=== PATIENT | female | born 1990 | race Caucasian/White ===

== ENCOUNTER 2016-06-04 00:30 | Outpatient (CLI) | payer MEDICAID ==
[~2016-06-04] VITALS: Ht 154.9 cm; Wt 79.4 kg
[2016-06-04 00:50] VITALS: Ht 154.9 cm; Wt 79.4 kg
[2016-06-04 00:54] VITALS: BP 130/66; PULSE 85; RESP 18
[2016-06-04] MEDS ORDERED: LACTATED RINGER'S 1,000 ML IV* SCH (01:00)
--- NOTE | 2016-06-04 02:11 | RADRPT ---
PROCEDURE: Obstetrical ultrasound, limited. CLINICAL INDICATION: labor. TECHNIQUE: Multiple sonographic images of the pelvis were obtained using transabdominal technique . Images were obtained with sadler scale and color Doppler. Transvaginal evaluation of the cervix was also performed. The images were reviewed on a PACS workstation. COMPARISON: No prior studies are available for comparison. FINDINGS: There is a single living intrauterine gestation with the fetus in a breech presentation. hear t tones of 143 beats per minute are identified. The placenta is posterior in location, grade 1. Th e cervix is closed measuring 3.1 cm. IMPRESSION: Single viable intrauterine gestation. Cervical length of 3.1 cm. .Jaun Vines MD, Date Time Electronically viewed and signed by .Jaun Vines MD, MD on 06/04/2016 02:11 .T/
[2016-06-04 02:13] LABS: ADD UMIC NO; URINE BILIRUBIN (Dip) NEGATIVE (NEGATIVE); URINE BLOOD (Dip) NEGATIVE (NEGATIVE); URINE COLOR LT. YELLOW (YELLOW); URINE GLUCOSE (Dip) NEGATIVE (NEGATIVE); URINE KETONES (Dip) NEGATIVE (NEGATIVE); URINE LEUKOCYTE ESTERASE (Dip) NEGATIVE (NEGATIVE); URINE NITRITE (Dip) NEGATIVE (NEGATIVE); URINE TOTAL PROTEIN (Dip) NEGATIVE (NEGATIVE); URINE UROBILINOGEN (Dip) 0.2 E.U./dL (0.1-1.0)
--- NOTE | 2016-06-04 03:09 | PN ---
Date/Time of Note Date/Time of Note DATE: 06/04/16 TIME: 03:03 OB Subjective Subjective Subjective 26 Year-old G1 with SIUP at 23 presents with a chief complaint of abdominal and back pain. She has been receiving her care with a Ob clinic. She states good movement. She denies nausea, vomiting, shortness of breath, chest pain, and abdominal pain between contractions, headache, visual changes, vaginal bleeding or LOF. OB Objective Objective Objective Physical Exam: General: Patient appears well, alert and oriented, NAD, appropriate mood and affect ABD: gravid, soft, non-tender. Back: No CVA tenderness (B/L) LE: No clubbing, cyanosis, edema, thigh or calf tenderness bilaterally FHT: 135 bpm , moderate variability with acceleration, no deceleration- category I Contractions: None Speculum exam: No vaginal bleeding or LOF, fibronectin collected OB Assessment/Plan Other plan: Assessment/Plan: 26 Year-old G1 with SIUP at 23 wks with abdominal and back pain. - FHR: No sign of metabolic acidosis- Category I - Continuous EFM, toco - Contractions: None. - OB us performed: CL: 3.1 cm - U/A, FFN: neg - Symptoms and sign of labor, preeclampsia, kick count discussed with patient, she voiced understanding. All of her questions answered. Patient was discharged home in stable condition with the appropriate discharge instructions provided. I would like patient to have close follow-up with her primary physician or outpatient clinic in 1-2 days or return to the ER for worsening symptoms or any other urgent concerns. CHASE HAMM Jun 04, 2016 03:09
--- NOTE | 2016-06-04 03:46 | TRIAGE ---
OB Triage Datetime Report Generated by CPN: 06/04/2016 03:45 Datetime: 06/04/2016 03:20 Stage of : OB Triage Datetime: 06/04/2016 03:00 Stage of : OB Triage Labor Evaluation Frequency: 3/HR Monitor Mode: External Duration (sec)2399: 60 Quality: Mild Pattern: Normal: <= 5 Contractions in 10 Minutes Resting Tone Wadsworth: Relaxed Pain Goal: 0 Datetime: 06/04/2016 02:56 Stage of : OB Triage Datetime: 06/04/2016 02:00 Stage of : OB Triage EGA: 22.3 Labor Evaluation Frequency: IRREGULAR Monitor Mode: External Duration (sec)2399: 50-80 Quality: Mild Pattern: Normal: <= 5 Contractions in 10 Minutes Resting Tone Wadsworth: Relaxed Datetime: 06/04/2016 01:20 Vaginal Exam Dilatation (cms): 0.0 Effacement (%): 0 Station: -3 Exam By: Kendy RIOJAS RN Vaginal Bleeding: None Cervix, Consistency: Firm Cervix, Position: Posterior Datetime: 06/04/2016 01:00 Labor Evaluation Frequency: 2/hr Monitor Mode: External Duration (sec)2399: 60-100 Quality: Mild Pattern: Normal: <= 5 Contractions in 10 Minutes Resting Tone Wadsworth: Relaxed Datetime: 06/04/2016 00:49 Stage of : OB Triage Assessment Type: Triage Time of Arrival: 06/04/2016 00:30 Arrived By: Ambulatory Arrived From: Home Chief Complaint: BACK PAIN Movement: Present Contractions: Irregular Time Contractions Began: 06/03/2016 21:00 Rupture of Membranes: Denies Vaginal Bleeding: None Vaginal Discharge: Denies Recent Sexual Intercouse: Denies Abdominal Trauma: Not Applicable Patient Complaints: None (Annotations: Data stored by CPN on behalf of user) Time Provider Notified: 06/04/2016 01:09 Provider Notified: DR HAMM Initial Plan: CALL TORREY COLIN Maternal Assessment Level of Consciousness: Fully Conscious DTR's/Clonus: DTRs 2+; No Clonus Headache: Denies Blurred Vision: No Respiratory Effort: Unlabored; Regular Rhythm; Equal Expansion Breath Sounds, Left: Clear and Equal Breath Sounds, Right: Clear and Equal Nausea/Vomiting: Denies RUQ Epigastric Pain: Denies Lower Extremities Edema: None Degree: None Upper Extremities Edema: None Degree: None Facial Edema: None Temperature Route: Oral Fall Risk Assessment History of Falling: (0) No Secondary Diagnosis: (0) No Ambulatory Aid: (0) Bedrest/Nurse Assist IV Therapy: (0) No Gait: (0) Normal/Bedrest/Immobile Mental Status: (0) Oriented to Own Ability Fall Score: 0 Fall Risk Score Definition: No Risk: No action required Monitor Mode: External Heart Rate FHR Baseline Rate: 150 Monitor Mode: External US Comments: DOPPLER Pain Assessment Pain Scale: 3 Pain Presence: Intermittent Pain Type: Cramping Pain Location: Abdomen; Back
== END 2016-06-04 03:22 | disposition home or self-care (01) ==
LOC: L-D 00:30 → OBT 00:30
PROVIDERS: ATTEND Obstetrics & Gynecology
DX: O26.892 Other specified pregnancy related conditions, second trimester (principal); R10.9 Unspecified abdominal pain; M54.9 Dorsalgia, unspecified; Z3A.23 23 weeks gestation of pregnancy
CPT/HCPCS: 36415; 76817; 81003; 82731; 96360; 96361; J7120; Z7500; G0463

== ENCOUNTER 2017-01-22 17:32 | Emergency (ER) | payer MEDICAID ==
[~2017-01-22] VITALS: Wt 81.0 kg
--- NOTE | 2017-01-22 18:28 | ERD ---
ER Documentation Chief Complaint Date/Time DATE: 01/22/17 TIME: 18:23 Chief Complaint LUMP ON RIGHT BREAST, ONSET 1 DAY, NO DISCHARGE HPI This 26-year-old female presents to emergency department for patient of right breast tenderness with palpable lump. found by patient yesterday. pt reports increasing pain, denies nipple d/c, or redness, no family HX of breast CA ROS All systems reviewed and are negative except as per history of present illness. Medications Home Meds No Active Prescriptions or Reported Meds Allergies Allergies: Coded Allergies: No Known Drug Allergies (Verified Allergy, Mild, 01/22/17) PMhx/Soc History of Surgery: Yes (CHOLECYSTECTOMY) Anesthesia Reaction: No Hx Neurological Disorder: No Hx Respiratory Disorders: No Hx Cardiac Disorders: Yes (HIGH CHOL) Hx Psychiatric Problems: No Hx Miscellaneous Medical Probl: Yes (OVARIAN CYST) Hx Alcohol Use: No Hx Substance Use: No Hx Tobacco Use: Yes Smoking Status: Current every day smoker Physical Exam Vitals Vital Signs Date Time Temp Pulse Resp B/P Pulse Ox O2 Delivery O2 Flow Rate FiO2 01/22/17 17:33 98.6 89 17 155/67 97 Able, triage notes reviewed Physical Exam Const: Well-nourished well-hydrated well-appearing Head: Atraumatic Eyes: Normal Conjunctiva ENT: . Nec. Resp: Clear to auscultation bilaterally Breast exam nipple is inverted, areola is without retraction or palpable mass , patient has fibrous breast tissue and a tender fibrous mass on right breast tween 20 and 2100 Cardio: Regular rate and rhythm, no murmurs Abd: Skin: No petechiae or rashes Back: Ext: Neur: Awake and alert Psych: Normal Mood and Affect Results 24 hrs Current Medications Medications (Trade) Dose Ordered Sig/Laia Route PRN Reason Start Time Stop Time Status Last Admin Dose Admin Ibuprofen (Motrin) 600 mg ONCE ONCE PO 01/22/17 18:30 01/22/17 18:31 DC 01/22/17 19:09 Procedures/MDM PROCEDURE: Right breast ultrasound, complete. CLINICAL INDICATION: 26-year-old female with palpable painful lump at the 9 o' clock right breast. TECHNIQUE: Whole breast ultrasound is performed. COMPARISON: None FINDINGS: Ultrasound of the breast shows multiple cysts at the 9 o'clock right breast. Largest cyst appears complex with septation measuring 2.4 x 2.4 x 2.2 cm. Remainder of the right breast ultrasound is unremarkable. There is no evidence of axillary adenopathy. IMPRESSION: 2.4 cm complex septated cyst at the 9 o'clock right breast correlating to the painful palpable abnormality. Other smaller cysts are also seen in the 9 o' clock left breast. Recommend clinical management and follow-up. A short term follow up right breast ultrasound to confirm benignity can be obtained if clinically indicated. BIRADS 3 (Probably benign). Short-term follow-up is advised. .Miguel A Smith MD, MD Date Time Electronically viewed and signed by .Miguel A Smith MD, on 01/22/2017 19:16 This 26-year-old female presents to emergency department for evaluation of right breast pain. Patient reports she found a tender lump yesterday doing a self breast exam since then she reports pain and throbbing in her right breast, she denies any history of warmth to her breast, nipple discharge, fever or chills. Patient is not breast-feeding. Physical exam findings a tender fibrous mass between 20 and 2100. Right breast ultrasound with radiology findings: 2.4 cm complex septated cyst at 9:00 right breast correlating to the painful palpable abnormality. Other smaller cysts are also seen in the 9:00 left breast. Recommended clinical management and follow-up. A short-term follow-up right breast ultrasound to confirm benignity can be obtained if clinically indicated.BIRADS (probably benign) term follow-up advised. This case discussed with supervising physician Dr. Vasquez, patient will be discharged home to follow-up with gynecology for mammogram and possible needle biopsy. 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 She is given a note that she was here in emergency department today, prescription for Naprosyn 1 tab p.o. twice daily 10 days. Rest the importance of keeping tomorrow's gynecological appointment. Patient was praised for her self breast exam. Patient is stable with no new complaints during ER course, clinically there is no current evidence to suggest cellulitis, mastitis, abscess or any other emergent condition appearing to require further evaluation or hospitalization. I feel the patient is stable for discharge at this time. I have discussed results, examination findings, the treatment plan with the patient and family present prior to discharge. Indications for emergent reevaluation, side effects of medication were also discussed. All questions were answered. Patient verbalizes understanding and agrees with plan of care. Departure Diagnosis: Primary Impression: Breast mass, right Condition: Good Patient Instructions: Breast Mass, Uncertain Cause Additional Instructions: Thank you for for coming to [facility] for your care today. Please ask your nurse or provider if you have questions about your care today and do not leave until all your questions have been answered. Please use any medications given as directed and follow-up with your doctor (or the doctor you were referred to) in the next 2-3 days. If you do not have a primary care doctor you may follow up at the [facility] (listed below). You may also use motrin and tylenol as needed for fever and/or pain unless instructed otherwise by your provider or nurse. Indications for more urgent follow-up have been discussed, but you may return to the Emergency Department at ANY time for any worrisome or worsening symptoms. If you have abdominal pain, please know that no test or exam you received is perfect and you should follow up within 8 hours for continued pain. If you had any imaging studies today, such as an X-Ray or CT Scan, these studies will be reviewed later by a radiologist. You will be called if there are important findings that were not identified today, so make sure the contact information you provided at registration is correct. If you received any narcotic pain control medicine today, such as Vicodin, Morphine or Dilaudid, your coordination and judgment may be affected for a number of hours. Please do not drive or operate heavy machinery, and you may want someone to assist you at home. If you were given a prescription for narcotic medication, be aware that it is very addictive- use sparingly and only if necessary. MAYTE MONTIEL Jan 22, 2017 18:28
[2017-01-22] MEDS ORDERED: IBUPROFEN 600 MG TAB PO ONE (18:30)
--- NOTE | 2017-01-22 19:16 | RADRPT ---
PROCEDURE: Right breast ultrasound, complete. CLINICAL INDICATION: 26-year-old female with palpable painful lump at the 9 o'clock right breast. TECHNIQUE: Whole breast ultrasound is performed. COMPARISON: None FINDINGS: Ultrasound of the breast shows multiple cysts at the 9 o'clock right breast. Largest cyst appears co mplex with septation measuring 2.4 x 2.4 x 2.2 cm. Remainder of the right breast ultrasound is unrem arkable. There is no evidence of axillary adenopathy. IMPRESSION: 2.4 cm complex septated cyst at the 9 o'clock right breast correlating to the painful palpable abnor mality. Other smaller cysts are also seen in the 9 o'clock left breast. Recommend clinical managemen t and follow-up. A short term follow up right breast ultrasound to confirm benignity can be obtained if clinically indicated. BIRADS 3 (Probably benign). Short-term follow-up is advised. RPTAT: RR .Miguel A Smith MD, Date Time Electronically viewed and signed by .Miguel A Smith MD, on 01/22/2017 19:16 .L/
[2017-01-22] MEDS ORDERED: NAPR-260 PO (20:59)
[2017-01-22 21:11] VITALS: BP 127/73; PULSE 85; RESP 15; TEMP 98.3
== END 2017-01-22 21:11 | disposition home or self-care (01) ==
LOC: FTE 17:32
DX: N63 Unspecified lump in breast (principal); F17.210 Nicotine dependence, cigarettes, uncomplicated
CPT/HCPCS: 76642; Z7502; Z7610

== ENCOUNTER 2018-05-22 15:18 | Emergency (ER) | payer MEDICAID, OTHER ==
[~2018-05-22] VITALS: Wt 80.8 kg
[~2018-05-22 15:18] MED LIST: NAPR-985 PO
[2018-05-22 15:23] VITALS: BP 148/92; PULSE 79; RESP 18
[2018-05-22] MEDS ORDERED: ACET500C5 PO (16:31)
[2018-05-22] MEDS ORDERED: GUAI5SYR2 PO (16:31)
[2018-05-22] MEDS ORDERED: DEXAMETHASONE 10 MG/ML 1 ML INJ ONE (16:32)
--- NOTE | 2018-05-22 16:33 | ERD ---
ER Documentation Chief Complaint Chief Complaint FLU SYMPTOMS X 3 DAYS HPI 28-year-old female presents with cough for last 3 days. She has had body aches and possible fever 3 days ago. She has a admitted [facility] for influenza and RSV. She has no vomiting, chest pain, abdominal pain. She is here with her daughter has had a cough for the last month. ROS All systems reviewed and are negative except as per history of present illness. Medications Home Meds Active Scripts Acetaminophen* (Tylophen*) 500 Mg Capsule, 1 CAP PO Q6H PRN for PAIN AND OR ELEVATED TEMP, #15 CAP Prov:ESE HOLDER MD 05/22/18 Guaifenesin-Dextromethorphan* (Robitussin* DM) 100MG/10MG/5ML Syrup, 5 ML PO QID for 5 Days, ML Prov:ESE HOLDER MD 05/22/18 Naproxen* (Naprosyn*) 500 Mg Tablet, 500 MG PO BID PRN for PAIN AND/OR INFLAMMATION, #20 TAB Prov:MAYTE MONTIEL 01/22/17 Allergies Allergies: Coded Allergies: No Known Drug Allergies (Verified Allergy, Mild, 01/22/17) PMhx/Soc History of Surgery: Yes (CHOLECYSTECTOMY) Anesthesia Reaction: No Hx Neurological Disorder: No Hx Respiratory Disorders: No Hx Cardiac Disorders: Yes (HIGH CHOL) Hx Psychiatric Problems: No Hx Miscellaneous Medical Probl: Yes (OVARIAN CYST) Hx Alcohol Use: No Hx Substance Use: No Hx Tobacco Use: Yes Smoking Status: Never smoker FmHx Family History: No diabetes, No coronary disease, No other Physical Exam Vitals Vital Signs Date Temp Pulse Resp B/P (MAP) Pulse Ox O2 O2 Flow FiO2 Time Delivery Rate 05/22/18 98.1 79 18 148/92 99 15:23 (110) Physical Exam Const: No acute distress. Well-appearing. Head: Atraumatic Eyes: Normal Conjunctiva ENT: Normal External Ears, Nose and Mouth. TMs and oropharynx normal. Neck: Full range of motion. No meningismus. Resp: Clear to auscultation bilaterally Cardio: Regular rate and rhythm, no murmurs Abd: Soft, non tender, non distended. Normal bowel sounds Skin: No petechiae or rashes Back: No midline or flank tenderness Ext: No cyanosis, or edema Neur: Awake and alert Psych: Normal Mood and Affect Procedures/MDM Patient presents with URI symptoms for 3 days with essentially normal exam. She has no evidence of hypoxemia, patient's respiratory status has stabilized while in the department and is appropriate for outpatient work up. Exam and work up not consistent w/ impending respiratory failure or cardiovascular collapse. Distress. She may have resolving influenza given the body aches and possible fever 3 days ago and got with influenza confirmed. She is well-appearing now. Will treat with Robitussin, Tylenol, instructions for rest, fluids, primary care follow-up and return precautions. The patient was stable with no new complaints during the ER course. Clinically, there is no current evidence to suggest meningitis, sepsis, acute abdomen, pneumonia, stroke, acute coronary syndrome, pulmonary embolism, aortic dissection or any other emergent condition appearing to require further evaluation or hospitalization. Patient counseled regarding my diagnostic impression and care plan. Prior to discharge all questions answered. Pt agrees with treatment plan and understands strict return precautions. Pt is instructed to follow up with primary care provider within 24-48 hours. Precautionary instructions provided including instructions to return to the ER if not improving or for any worsening or changing symptoms or concerns. Disclaimer: Inadvertent spelling and grammatical errors are likely due to EHR/dictation software use and do not reflect on the overall quality of patient care. Also, please note that the electronic time recorded on this note does not necessarily reflect the actual time of the patient encounter. Departure Diagnosis: Primary Impression: Upper respiratory infection Condition: Stable Patient Instructions: Influenza (Adult), Uri, Viral, No Abx (Adult) Referrals: NO PRIMARY,CARE PHYSICIAN (PCP) Additional Instructions: Suspect resolving influenza. Recheck for new or worsening symptoms-shortness of breath, vomiting, new worsening symptoms with primary care doctor. ESE HOLDER MD May 22, 2018 16:33
== END 2018-05-22 16:42 | disposition home or self-care (01) ==
LOC: FTE 15:18
DX: J06.9 Acute upper respiratory infection, unspecified (principal)
CPT/HCPCS: J1100; Z7502; 99282